=== PATIENT | female | born 1955 | race Two or more races ===

== ENCOUNTER 2019-03-27 13:27 | Outpatient (CLI) | payer BC ==
[2019-03-27] MEDS ORDERED: IOHEXOL 100 ML IV ONE (14:07)
== END 2019-03-27 18:57 | disposition home or self-care (01) ==
LOC: SCT 13:27
DX: Z12.31 Encounter for screening mammogram for malignant neoplasm of breast (principal); N20.0 Calculus of kidney; K31.89 Other diseases of stomach and duodenum; M47.819 Spondylosis without myelopathy or radiculopathy, site unspecified
CPT/HCPCS: 74178; 77067; Q9967

== ENCOUNTER → 2019-06-25 | Outpatient (CLI) | payer BC | END | disposition home or self-care (01) | LOC: SMA 09:50 | DX: R92.8 Other abnormal and inconclusive findings on diagnostic imaging of breast (principal) | CPT/HCPCS: 76641; 77066 ==